=== PATIENT | male | born 1965 | race African-American/Black ===

== ENCOUNTER 2022-10-21 12:20 | Emergency (ER) | payer SELFPAY ==
[~2022-10-21] VITALS: Ht 182.9 cm; Wt 73.0 kg
[2022-10-21] MEDS ORDERED: ACETAMINOPHEN 325MG TABLET PO ONE (13:30)
[2022-10-21] MEDS ORDERED: IBUP-2028 MT (14:01)
[2022-10-21 14:09] VITALS: BP 152/66
== END 2022-10-21 14:12 | disposition home or self-care (01) ==
LOC: ER 13:09
DX: M79.18 Myalgia, other site (principal); E11.9 Type 2 diabetes mellitus without complications; Z88.0 Allergy status to penicillin
CPT/HCPCS: 99283